=== PATIENT | female | born 1980 | race American Indian/Alaskan Native ===

== ENCOUNTER 2016-10-01 14:17 | Outpatient (CLI) | payer OTHER ==
--- NOTE | 2016-10-02 07:30 | Fluoroscopy Report ---
UPPER GI SERIES WITH AIR-CONTRAST HISTORY: Esophagitis, gastroesophageal reflux disease. FINDINGS: Pull Out Operator film of the abdomen demonstrates a normal bowel gas pattern. A LAP band is identified in the left upper quadrant which appears in good position. Deglutition is normal. No evidence for aspiration. The esophagus is normal caliber and mucosal pattern throughout. However, there does appear to be significant delay in passage of the contrast agent through the esophagus and LAP band. Multiple episodes of esophageal spasm were demonstrated throughout this exam. Occasional episodes of reflux were also demonstrated. There is eventual passage of the contrast agent through the lap band device which outlines a normal stomach, duodenal bulb and duodenal sweep. IMPRESSION: Significant delay in the passage of the oral contrast through the LAP band device. The LAP band appears in good position but I suspect it is too tight. Please correlate with the patient's clinical presentation. Multiple episodes of esophageal spasm were witnessed throughout this exam consistent with esophagitis. Occasional episodes of gastroesophageal reflux.
== END 2016-10-01 14:18 | disposition home or self-care (01) ==
LOC: FLUORO 14:17
PROVIDERS: ATTEND Specialist
DX: K21.9 Gastro-esophageal reflux disease without esophagitis (principal); K20.9 Esophagitis, unspecified; K30 Functional dyspepsia
CPT/HCPCS: 74247

== ENCOUNTER 2018-11-09 05:58 | Day surgery (SDC) | payer MEDICAID ==
[~2018-11-09 05:58] MED LIST: LACTATED RINGERS 1,000 ML IV SCH; MARCAINE 0.5% INFILTRATI ONE; NACL 0.9% IR ONE
[2018-11-09] MEDS ORDERED: NEURONTIN PO NR (06:00)
[2018-11-09] MEDS ORDERED: VERSED IV NR (06:00)
[2018-11-09 07:13] LABS: Hematocrit 37.4 % (30.3-42.9); Hemoglobin 12.7 gm/dl (10.1-14.3)
[2018-11-09] MEDS ORDERED: MARCAINE 0.5% INFILTRATI ONE ×2 (07:15→07:35)
--- NOTE | 2018-11-09 07:19 | Short Stay Summary ---
Short Stay Documentation Date of service: 11/09/18 Narrative H&P: Patient is a 37-year-old black female LMP 10/19/2018 presents for permanent sterilization. - History Principal diagnosis: Desires permanent sterilization H&P: obtained from office Past Medical History: diabetes (diet controlled) Past Surgical History: , Other (Lap band) Social history: no significant social history, - Allergies and Medications Current Medications: Allergies No Known Allergies Allergy (Verified 11/03/18 16:16) Home Medications Medication Instructions Recorded Confirmed Last Taken Type diphenhydrAMINE [Benadryl CAP] 25 mg PO Q8HR PRN 11/03/18 11/03/18 Unknown History l-Norgest/E.estradiol-E.estrad 1 tab PO DAILY 11/03/18 11/03/18 Unknown History [Levono-E Estrad 0.10-0.02-0.01] Active Medications Celecoxib (Celebrex) 200 mg PO PREOP NR Stop: 11/09/18 23:59 Gabapentin (Neurontin) 300 mg PO PREOP NR Stop: 11/09/18 23:59 Lactated Ringer's (Lactated Ringers) 1,000 mls @ 100 mls/hr IV DIRECT SUSU Midazolam HCl (Versed) 2 mg IV PREOP NR Stop: 11/09/18 23:59 - Physical exam General appearance: no acute distress Integumentary: no rash HEENT: Atraumatic Lungs: Clear to auscultation Breasts: deferred Heart: Regular rate Gastrointestinal: normal Female Genitourinary: deferred Rectal Exam: deferred Extremities: no ischemia, No edema Neurological: Normal gait, Normal speech - Brief post op/procedure progress note Date of procedure: 11/09/18 Pre-op diagnosis: Desires permanent sterilization Post-op diagnosis: same Procedure: Laparoscopic bilateral tubal ligation Anesthesia: GETA Findings: Normal uterus with normal tubes and ovaries bilaterally. Omental adhesions to the anterior abdominal wall. Surgeon: YOVANI WHITESIDE Estimated blood loss: minimal Pathology: none - Hospital course Hospital course: Unremarkable. - Disposition Condition at discharge: Good Disposition: DC-01 TO HOME OR SELFCARE - Discharge Diagnoses (1) Sterilization Status: Resolved Short Stay Discharge Plan Activity: no restrictions Diet: diabetic Wound: open to air, keep clean and dry Follow up with: JESSICA GOULD MD [Primary Care Provider] - 7 Days YOVANI WHITESIDE MD [Staff Physician] - 14 Days Prescriptions: HYDROcodone/APAP 5-325 [[place] 5/325] 1 each PO Q6HR PRN #20 tablet PRN Reason: Pain
--- NOTE | 2018-11-09 07:22 | Anesthesia Consultation ---
Anesthesia Consult and Med Hx Date of service: 11/09/18 - Airway Anesthetic Teeth Evaluation: Good ROM Head & Neck: Adequate Mental/Hyoid Distance: Adequate Mallampati Class: Class II Intubation Access Assessment: Probably Good - Pulmonary Exam CTA: Yes - Cardiac Exam Cardiac Exam: RRR - Pre-Operative Health Status ASA Pre-Surgery Classification: ASA2 Proposed Anesthetic Plan: General - Pulmonary Hx Smoking: No Hx Respiratory Symptoms: No Hx Sleep Apnea: No - Cardiovascular System Hx Hypertension: No Hx Heart Attack/AMI: No Hx Percutaneous Transluminal Coronary Angioplasty (PTCA): No - Central Nervous System Hx Seizures: No CVA: No Hx Psychiatric Problems: No - Gastrointestinal Hx Gastroesophageal Reflux Disease: No - Endocrine Hx Renal Disease: No Hx Liver Disease: No Hx Non-Insulin Dependent Diabetes: Yes Hx Thyroid Disease: No - Hematic 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
[2018-11-09] MEDS ORDERED: DILAUDID IV PRN (07:23)
--- NOTE | 2018-11-09 07:23 | Anesthesia Day of Surgery ---
Anesthesia Day of Surgery - Day of Surgery Patient Examined: Yes Patient H&P Reviewed: Yes Patient is NPO: Yes
[2018-11-09] MEDS ORDERED: NACL 0.9% IR ONE (07:35)
[2018-11-09] MEDS ORDERED: ANCEF/STERILE WATER 2 GM/20 ML 2 GM/20 ML SYRINGE IV NR (08:00)
[2018-11-09] MEDS ORDERED: DIPRIVAN 10 MG/ML IV ONE (08:17)
[2018-11-09] MEDS ORDERED: SUBLIMAZE ONE (08:17)
--- NOTE | 2018-11-09 08:53 | Operative Report ---
Operative Report Operative Report: PREOPERATIVE DIAGNOSIS: Desires permanent sterilization POSTOPERATIVE DIAGNOSIS: Same OPERATIVE PROCEDURE: Laparoscopic bilateral tubal ligation. SURGEON: Won Lin MD ANESTHESIA: Gen. endotracheal intubation ANESTHESIOLOGIST: Dr. Philip ESTIMATED BLOOD LOSS: Minimal FINDINGS: Normal uterus and normal tubes and ovaries bilaterally. Omental adhesions to the anterior abdominal wall. COMPLICATIONS: None COUNTS: Correct x3. PROCEDURE: After the patient was correctly identified and after general anesthesia was administered, the patient was prepped and draped in usual sterile fashion and placed in dorsal lithotomy position. First, the bladder was emptied using a straight catheter. Next, a speculum was placed in the vaginal vault and the anterior lip of the cervix was grasped using a single-tooth tenaculum. The uterine manipulator was then placed and the tenaculum and speculum were removed. Attention was then turned to the abdomen where first a periumbilical incision was made using a skin knife, and the Optiview trocar was inserted under direct visualization. After an adequate amount of abdominal insufflation, visualization of the pelvic organs found the uterus to be normal, and the tubes and ovaries to be normal bilaterally. Next, the left fallopian tube was grasped using the Kleppingers, and after identifying the fimbriated end of the left tube, this tube was cauterized in 3 continuous [address] along the proximal portion of the left tube. The same procedure was performed on the right fallopian tube after first identifying the fimbriated end of the right tube. This tube was also cauterized in 3 continuous places along the proximal portion of the right tube. At this point, the procedure was then considered complete. All instruments were removed from the abdomen. The abdomen was deflated and the periumbilical incision was closed using 0 Vicryl suture in a [id number] configuration on the fascia, followed by 4-0 Monocryl suture in sub-cuticular fashion on the skin. The incision was also infiltrated using 0.5% Marcaine solution. The uterine manipulator was removed. The patient tolerated the procedure well and was transferred to recovery room stable condition.
[2018-11-09] MEDS ORDERED: ZEMURON IV ONE (09:27)
[2018-11-09] MEDS ORDERED: ROBINUL ONE (09:27)
[2018-11-09] MEDS ORDERED: XYLOCAINE MPF 2% ONE (09:27)
[2018-11-09] MEDS ORDERED: QUELICIN ONE (09:27)
[2018-11-09] MEDS ORDERED: DECADRON ONE (09:27)
[2018-11-09] MEDS ORDERED: ZOFRAN ONE ×2 (09:27→09:41)
[2018-11-09] MEDS ORDERED: TORADOL ONE (09:29)
[2018-11-09] MEDS ORDERED: ZOFRAN IV PRN (10:00)
[2018-11-09 10:18] VITALS: BP 133/76
--- NOTE | 2018-11-09 14:00 | Post Anesthesia Evaluation ---
- Post Anesthesia Evaluation Patient Participated: Yes Airway Patent: Yes Stable Respiratory Function: Yes Nausea/Vomiting: No Temp > 96.8F: Yes Pain Manageable: Yes Adequeate Hydration: Yes Anesthesia Complications: No
== END 2018-11-09 10:10 | disposition home or self-care (01) ==
LOC: OR 05:58
PROVIDERS: ATTEND Obstetrics & Gynecology
DX: Z30.2 Encounter for sterilization (principal); E11.9 Type 2 diabetes mellitus without complications; E66.9 Obesity, unspecified; Z79.899 Other long term (current) drug therapy; Z68.33 Body mass index [BMI] 33.0-33.9, adult; Z98.890 Other specified postprocedural states; Z98.891 History of uterine scar from previous surgery; Z79.84 Long term (current) use of oral hypoglycemic drugs; Z83.3 Family history of diabetes mellitus; Z82.49 Family history of ischemic heart disease and other diseases of the circulatory system; Z86.2 Personal history of diseases of the blood and blood-forming organs and certain disorders involving the immune mechanism
CPT/HCPCS: 36415; 58670; 81025; 82962; 85014; 85018; J0330; J0690; J1100; J1885; J2250; J2405; J2704; J3010; J7120

== ENCOUNTER 2019-02-16 08:11 | Emergency (ER) | payer MEDICAID ==
[2019-02-16 08:27] VITALS: BP 128/69
[2019-02-16] MEDS ORDERED: methylPREDNISolone ACETATE 80 MG/1 ML INJ IM ONE (09:33)
[2019-02-16] MEDS ORDERED: KETOROLAC 60 MG/2 ML INJ IM ONE (09:33)
--- NOTE | 2019-02-16 09:38 | Emergency Department Report ---
ED Back Pain/Injury HPI - General Chief Complaint: Back Pain/Injury Stated Complaint: BACK PAIN Time Seen by Provider: 02/16/19 09:28 Source: patient Limitations: No Limitations - History of Present Illness Initial Comments: 35 YO FEMALE COMES TO ER P EXERCISING ON A TORSO TWISTER ON THURSDAY. SHE HAS HAD BACK PAIN SINCE. SHE HAS HAD THIS OCCUR BEFORE AND WAS GIVEN FLEXERIL AND M OTRIN. SHE TOOK THEM LAST NIGHT WITH MINIMAL RELIEF. SHE STATES IN THE PAST SHE HAS GOTTEN A SHOT FOR THIS PAIN. NO FALL OR TRAUMA NO FEVER OR CHILLS NO DYSURIA OR VAG DC NO ABD PAIN; N/V/DIARRHEA Complaint: back pain -: Gradual, days(s) Similar Symptoms Previously: Yes Place: home Radiation: none Severity: moderate Quality: aching Consistency: intermittent Improves With: immobilization Worsens With: movement Context: turning/twisting Associated Symptoms: denies other symptoms - Related Data Previous Rx's Medication Instructions Recorded Last Taken Type Ketorolac [Toradol] 10 mg PO Q6H PRN #10 tablet 02/16/19 Unknown Rx predniSONE [Deltasone] 20 mg PO DAILY #5 tablet 02/16/19 Unknown Rx Allergies Allergy/AdvReac Type Severity Reaction Status Date / Time No Known Allergies Allergy Verified 11/03/18 16:16 ED Review of Systems ROS: Stated complaint: BACK PAIN Other details as noted in HPI Comment: All other systems reviewed and negative ED Past Medical Hx - Past Medical History OBESE Surgical history: no surgical history Psychiatric history: no pertinent history Family history: no significant family history - Social History Smoking Status: Never Smoker Alcohol use: rarely Drug use: none ED Back Pain Physical Exam - Exam General: Vital signs noted. No distress. Alert and acting appropriately. Back/Abdomen: No Abdominal Tenderness, No Perithoracic Tenderness, No Perilumbar Tenderness, No Sacroiliac Tenderness, No Flank Tenderness, No Straight Leg Raise Pain Neuro: Yes Normal Sensation, Yes Normal DTR's, Yes Normal Gait, No Motor Weakness ED Course Vital Signs 02/16/19 08:24 Temperature 98.0 F Pulse Rate 68 Respiratory 16 Rate Blood Pressure 128/69 O2 Sat by Pulse 100 Oximetry ED Medical Decision Making - Medical Decision Making PAIN REPRODUCIBLE WITH MOVEMENT PAIN IS RIGHT SIDE LOWER THORACIC AREA. NO DYSURIA NO FEVER NO VAG DC NO CVA TENDERNESS NEURO INTACT NO S/S CAUDA EQUINA HAS HAD THIS BEFORE P EXERCISE PT EDUCATED ON AVOIDING TWISTING MOTION FOR ITS BAD FOR BACK HEALTH. SHE STATES SHE KNEW BETTER MEDICATED WITH TORADOL AND DEPOMEDROL AMBULATORY NON TOXIC NON ILL APPEARING Vital Signs 02/16/19 08:24 Temperature 98.0 F Pulse Rate 68 Respiratory 16 Rate Blood Pressure 128/69 O2 Sat by Pulse 100 Oximetry - Differential Diagnosis URI/MUSCLE STRAIN Critical care attestation.: If time is entered above; I have spent that time in minutes in the direct care of this critically ill patient, excluding procedure time. ED Disposition Clinical Impression: Muscle strain Disposition: DC-01 TO HOME OR SELFCARE Is pt being admited?: No Does the pt Need Aspirin: No Condition: Stable Instructions: Muscle Strain (ED) Additional Instructions: AVOID THE TWISTING MACHINE AND TWISTING MOTION CONTINUE HOME FLEXERIL AND MOTRIN USE THE MOTRIN FOR MILD PAIN USE THE TORADOL - RX TODAY FOR MOD TO SEVERE PAIN PREDNISONE FOR 5 DAYS ORDERED WARM COMPRESSES AND BATHS WILL HELP GOOD BODY MECHANICS TO AVOID FUTURE INJURY FOLLOW UP WITH PCP IF PAIN PERSISTS Prescriptions: predniSONE [Deltasone] 20 mg PO DAILY #5 tablet Ketorolac [Toradol] 10 mg PO Q6H PRN #10 tablet PRN Reason: Pain Referrals: PRIMARY CARE, [Primary Care Provider] - 3-5 Days RANCHO WOODY MD [Staff Physician] - 3-5 Days Time of Disposition: 09:39
== END 2019-02-16 10:14 | disposition home or self-care (01) ==
LOC: ED 08:11
DX: S39.012A Strain of muscle, fascia and tendon of lower back, initial encounter (principal); X50.1XXA Overexertion from prolonged static or awkward postures, initial encounter; Y93.89 Activity, other specified; Y92.89 Other specified places as the place of occurrence of the external cause; Y99.8 Other external cause status
CPT/HCPCS: 96372; 99282; J1040; J1885

== ENCOUNTER 2021-08-06 09:12 | Emergency (ER) | payer MEDICAID ==
[2021-08-06] MEDS ORDERED: fentaNYL 100 MCG/2 ML INJ IV ONE ×2 (09:22→10:32)
[2021-08-06] MEDS ORDERED: propofoL 200 MG/20 ML VIAL IV ONE (09:23)
[2021-08-06] MEDS ORDERED: KETAMINE 500 MG/5 ML VIAL MDV IV ONE (09:23)
--- NOTE | 2021-08-06 09:38 | Emergency Department Report ---
ED Upper Extremity Inj HPI - General Chief Complaint: Extremity Injury, Upper Stated Complaint: R SHOULDER DISLOCATION Time Seen by Provider: 08/06/21 09:21 Source: patient, EMS Mode of arrival: Stretcher Limitations: No Limitations - History of Present Illness Initial Comments: 40-year-old jdcfr-pxro-vakisile diabetic female presents to the hospital planing of possible right shoulder dislocation. Patient was pushing herself up when she felt right shoulder pain with limited movement. Pain is severe in intensity and worse with movement without alleviating factors reported. Patient received fentanyl in route to the hospital with some minor improvement. Patient has a history of left shoulder dislocations and conscious sedation. She denies a pr evious history of adverse reaction to sedation meds. Last p.o. intake was 9 PM last night - Related Data Previous Rx's Medication Instructions Recorded Last Taken Type Ketorolac [Toradol] 10 mg PO Q6H PRN #10 tablet 02/16/19 Unknown Rx predniSONE [Deltasone] 20 mg PO DAILY #5 tablet 02/16/19 Unknown Rx Ibuprofen [Motrin] 800 mg PO Q8HR PRN #20 tablet 08/06/21 Unknown Rx Allergies Allergy/AdvReac Type Severity Reaction Status Date / Time No Known Allergies Allergy Verified 08/06/21 09:15 ED Review of Systems ROS: Stated complaint: R SHOULDER DISLOCATION Other details as noted in HPI ED Past Medical Hx - Past Medical History Hx Hypertension: No Hx Heart Attack/AMI: No Hx Diabetes: Yes (Diet controlled) Hx Deep Vein Thrombosis: No Hx Liver Disease: No Hx Renal Disease: No 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) Hx Seizures: No Hx HIV: No Additional medical history: OBESE - Surgical History Additional Surgical History: lap band - Social History Smoking Status: Never Smoker - Medications Home Medications: Home Medications Medication Instructions Recorded Confirmed Last Taken Type Ketorolac [Toradol] 10 mg PO Q6H PRN #10 tablet 02/16/19 Unknown Rx predniSONE [Deltasone] 20 mg PO DAILY #5 tablet 02/16/19 Unknown Rx Ibuprofen [Motrin] 800 mg PO Q8HR PRN #20 tablet 08/06/21 Unknown Rx ED Physical Exam - General Limitations: No Limitations ED Course Vital Signs 08/06/21 08/06/21 08/06/21 09:13 10:00 10:13 Pulse Rate 79 64 Pulse Rate [ Intra-Procedure ] Pulse Rate [ Post-Procedure] Pulse Rate [Pre 68 -Procedure] Respiratory 14 11 L Rate Respiratory Rate [Intra- Procedure] Respiratory Rate [Post- Procedure] Respiratory 16 Rate [Pre- Procedure] Blood Pressure 119/62 Blood Pressure [Intra- Procedure] Blood Pressure 155/90 [Left] Blood Pressure [Post-Procedure ] Blood Pressure 118/72 [Pre-Procedure] O2 Sat by Pulse 100 100 Oximetry O2 Sat by Pulse Oximetry [ Intra-Procedure ] O2 Sat by Pulse Oximetry [Post -Procedure] O2 Sat by Pulse Oximetry [Pre- Procedure] 08/06/21 08/06/21 08/06/21 10:15 10:30 10:53 Pulse Rate 69 Pulse Rate [ 68 Intra-Procedure ] Pulse Rate [ 68 Post-Procedure] Pulse Rate [Pre -Procedure] Respiratory 13 18 Rate Respiratory 16 Rate [Intra- Procedure] Respiratory 16 Rate [Post- Procedure] Respiratory Rate [Pre- Procedure] Blood Pressure 137/82 Blood Pressure 118/72 [Intra- Procedure] Blood Pressure [Left] Blood Pressure 124/72 [Post-Procedure ] Blood Pressure [Pre-Procedure] O2 Sat by Pulse 100 99 Oximetry O2 Sat by Pulse 100 Oximetry [ Intra-Procedure ] O2 Sat by Pulse 100 Oximetry [Post -Procedure] O2 Sat by Pulse 100 Oximetry [Pre- Procedure] 08/06/21 08/06/21 08/06/21 11:00 11:31 11:34 Pulse Rate 68 97 H Pulse Rate [ Intra-Procedure ] Pulse Rate [ Post-Procedure] Pulse Rate [Pre -Procedure] Respiratory 13 22 Rate Respiratory Rate [Intra- Procedure] Respiratory Rate [Post- Procedure] Respiratory Rate [Pre- Procedure] Blood Pressure 117/72 155/97 Blood Pressure [Intra- Procedure] Blood Pressure [Left] Blood Pressure [Post-Procedure ] Blood Pressure [Pre-Procedure] O2 Sat by Pulse 100 100 100 Oximetry O2 Sat by Pulse Oximetry [ Intra-Procedure ] O2 Sat by Pulse Oximetry [Post -Procedure] O2 Sat by Pulse Oximetry [Pre- Procedure] 08/06/21 08/06/21 08/06/21 11:36 12:01 12:31 Pulse Rate 88 66 63 Pulse Rate [ Intra-Procedure ] Pulse Rate [ Post-Procedure] Pulse Rate [Pre -Procedure] Respiratory 18 10 L 11 L Rate Respiratory Rate [Intra- Procedure] Respiratory Rate [Post- Procedure] Respiratory Rate [Pre- Procedure] Blood Pressure 131/63 129/72 Blood Pressure [Intra- Procedure] Blood Pressure [Left] Blood Pressure [Post-Procedure ] Blood Pressure [Pre-Procedure] O2 Sat by Pulse 100 100 Oximetry O2 Sat by Pulse Oximetry [ Intra-Procedure ] O2 Sat by Pulse Oximetry [Post -Procedure] O2 Sat by Pulse Oximetry [Pre- Procedure] - Moderate Sedation Indications: fracture/dislocation redu ASA Class: II Mallampati Airway Score: 2 Time of Last PO Intake: 21:00 (Last night) Preparation: security monitor applied, pulse oximeter, capnometry used, suction/airway equipment at bedside, IV secured Ketamine: IV Ketamine Dose: 50 IV Propofol Dose (mgs): 50 Complications: none Patient Tolerated Procedure: well - Orthopedic Joint Reduction Joint #1 Consent Obtained: written consent Time Out Performed: Yes Side: right Joint Reduction Location: shoulder Analgesia: moderate sedation Shoulder Technique Used (if applicable): external rotation Post-Reduction Neuro Exam: intact Post Reduction X-Ray Obtained: Yes Post Reduction X-Ray Results: reduced Splint Applied: Yes (Shoulder immobilizer) Patient Tolerated Procedure: well Additional Comments: Procedure start time 10:15 AM Stop time 10:30 AM ED Medical Decision Making - Radiology Data Radiology results: report reviewed RIGHT SHOULDER 3 VIEWS INDICATION: pain, possible dislocation. COMPARISON: None. IMPRESSION: Anterior, inferior dislocation at the right glenohumeral joint is identified. No obvious associated fracture. No significant DJD. - Medical Decision Making 40-year-old female presents to the hospital right shoulder dislocation preassessment reduction after conscious sedation. Patient neurovascularly intact. Patient observed for several hours until mental status at baseline. Outpatient follow-up will be provided Critical Care Time: No Critical care attestation.: If time is entered above; I have spent that time in minutes in the direct care of this critically ill patient, excluding procedure time. ED Disposition Clinical Impression: Dislocation of shoulder, right, closed Disposition: 01 HOME / SELF CARE / HOMELESS Is pt being admited?: No Does the pt Need Aspirin: No Condition: Stable Instructions: Shoulder Dislocation, Moderate Conscious Sedation, Adult, Care After, How to Use a Shoulder Immobilizer Additional Instructions: Take the medication as prescribed. Follow-up with the orthopedic doctor provided with orthopedic doctor of your choice. Return if symptoms worsen as indicated by your discharge instructions. Prescriptions: Ibuprofen [Motrin] 800 mg PO Q8HR PRN #20 tablet PRN Reason: Pain , Severe (7-10) Referrals: HOANG GONCALVES [Other] - 3-5 Days MARY SERRANO MD [Staff Physician] - 3-5 Days (Orthopedic doctor) Time of Disposition: 14:06
[2021-08-06] MEDS ORDERED: KETOROLAC 30 MG/1 ML INJ IV ONE (10:32)
--- NOTE | 2021-08-06 10:44 | XRay Report ---
RIGHT SHOULDER 3 VIEWS INDICATION: pain, possible dislocation. COMPARISON: None. IMPRESSION: Anterior, inferior dislocation at the right glenohumeral joint is identified. No obvious associated fracture. No significant DJD. Signer Name: Won Means Jr, MD Signed: 08/06/2021 10:39 AM Workstation Name: [id number]
--- NOTE | 2021-08-06 11:35 | XRay Report ---
XR shoulder 1V RT INDICATION: post reduction film. COMPARISON: Exam done earlier today FINDINGS: Previously seen right shoulder dislocation has been reduced with anatomic alignment. Signer Name: Russell Akers MD Signed: 08/06/2021 11:31 AM Workstation Name: [id number]
[2021-08-06 15:48] VITALS: BP 129/78
== END 2021-08-06 14:15 | disposition home or self-care (01) ==
LOC: ED 09:12
DX: S43.004A Unspecified dislocation of right shoulder joint, initial encounter (principal); E11.9 Type 2 diabetes mellitus without complications; X58.XXXA Exposure to other specified factors, initial encounter; Y93.89 Activity, other specified; Y92.89 Other specified places as the place of occurrence of the external cause; Y99.8 Other external cause status
CPT/HCPCS: 23650; 73020; 73030; 96374; 96375; 96376; 99284; J1885; J2704; J3010; J3490; J7120